=== PATIENT | female | born 1975 | race Caucasian/White ===

== ENCOUNTER 2019-03-27 18:21 | Emergency (ER) | payer BC ==
[~2019-03-27] VITALS: Ht 154.9 cm; Wt 81.6 kg
[2019-03-27 18:32] VITALS: Ht 154.9 cm; Wt 81.6 kg
[2019-03-27 20:15] VITALS: BP 134/60
== END 2019-03-27 20:15 | disposition home or self-care (01) ==
LOC: ED 18:21
DX: S61.213A Laceration without foreign body of left middle finger without damage to nail, initial encounter (principal); Z88.1 Allergy status to other antibiotic agents; W26.8XXA Contact with other sharp object(s), not elsewhere classified, initial encounter; Y93.89 Activity, other specified; Y92.89 Other specified places as the place of occurrence of the external cause; Y99.8 Other external cause status
CPT/HCPCS: 90715